=== PATIENT | female | born 1985 | race Caucasian/White ===

== ENCOUNTER 2017-10-08 18:00 | Emergency (ER) | payer BC ==
[~2017-10-08] VITALS: Ht 162.6 cm; Wt 106.6 kg
[~2017-10-08 18:00] MED LIST: LISINOPRIL10 MG PO; METOPROLOL SUC100 MG PO; Motrin PO; NO HOME MEDS; PRENATAL1 EACH PO; Paxil PO; Percocet 5/325,Endoc PO; Protonix PO; SEASONALE,JO1 TABLET PO; XANAX0.25 MG PO
[2017-10-08 19:12] LABS: HEMATOCRIT 43.2 % (36.0-46.0); HEMOGLOBIN 14.7 G/DL (11.9-15.5); MCH 30.5 PG (29.0-34.0); MCV 89.6 FL (83-99); PLATELET COUNT 370 K/uL (156-360); RBC DIS.WIDTH-CV 11.9 % (11.8-14.6); RBC DIS.WIDTH-SD 39.2 % (39-53); RED BLOOD COUNT 4.82 M/uL (3.80-5.20); WHITE BLOOD COUNT 9.1 K/uL (4.1-10.2)
[2017-10-08 19:35] LABS: TROP-I INTERPRETATION NEGATIVE; TROPONIN-I < 0.01 ng/mL (0.0-0.30)
[2017-10-08 19:39] LABS: CHLORIDE 105 mEq/L (99-109); POTASSIUM 3.8 mEq/L (3.7-5.4); SODIUM 140 mEq/L (136-147)
[2017-10-08 19:41] LABS: GLUCOSE 86 mg/dL (70-99)
[2017-10-08 19:45] LABS: CREATININE 0.7 mg/dL (0.6-1.3); GFR ESTIMATE (CALCULATED) > 59 mL/min/
[2017-10-08 19:46] LABS: UREA NITROGEN (BUN) 10 mg/dL (9-23)
[2017-10-08 20:34] VITALS: BP 145/83
[2017-10-08 22:08] LABS: QUANTITATIVE HCG < 4.0 MIU/ML
[2017-10-08] MEDS ORDERED: MECLIZINE HCL25 MG PO (22:24)
[2017-10-09 08:05] LABS: THYROTROPIN (TSH) 1.8 MIU/L (0.4-5.5)
== END 2017-10-08 22:40 | disposition home or self-care (01) ==
LOC: EME 18:00 → RME 18:00
DX: R42 Dizziness and giddiness (principal); R53.83 Other fatigue
CPT/HCPCS: 71046; 80048; 84443; 84484; 84702; 85027; 93005; 99281; 99284